=== PATIENT | male | born 1970 | race African-American/Black ===

== ENCOUNTER 2016-12-14 14:34 | Emergency (ER) | payer OTHER ==
[~2016-12-14] VITALS: Ht 172.7 cm; Wt 65.0 kg
[~2016-12-14 14:34] MED LIST: ATEN-188 PO; ENAL-54 PO; FAMO-39 PO; MULT-1192 PO; NIFE30TA98 PO; PRED5 PO; TACR1 PO
[2016-12-14 14:47] LABS: GLUCOSE,POINT OF CARE 266 MG/DL (70-110)
[2016-12-14] MEDS ORDERED: HYDROCODONE/ACETAMINOPHEN 5-325 MG TABLET PO ONE (15:30)
[2016-12-14 17:04] VITALS: BP 145/84
== END 2016-12-14 17:06 | disposition home or self-care (01) ==
LOC: EMS 14:36
DX: S20.212A Contusion of left front wall of thorax, initial encounter (principal); I10 Essential (primary) hypertension; E11.9 Type 2 diabetes mellitus without complications; F17.210 Nicotine dependence, cigarettes, uncomplicated; W01.0XXA Fall on same level from slipping, tripping and stumbling without subsequent striking against object, initial encounter; Y92.89 Other specified places as the place of occurrence of the external cause; Y93.89 Activity, other specified; Y99.8 Other external cause status
CPT/HCPCS: 82962; 99283